=== PATIENT | male | born 1990 | race Caucasian/White ===

== ENCOUNTER 2018-08-30 09:41 | Emergency (ER) | payer OTHER ==
[~2018-08-30] VITALS: Ht 180.3 cm; Wt 70.0 kg
[2018-08-30] MEDS ORDERED: PANTOPRAZOLE SO40 MG PO (12:23)
[2018-08-30] MEDS ORDERED: FUROSEMIDE20 MG PO (12:23)
[2018-08-30] MEDS ORDERED: GENERLAC10 GM/15 M PO (12:23)
[2018-08-30] MEDS ORDERED: PROPRANOLOL HCL10 MG PO (12:23)
[2018-08-30] MEDS ORDERED: ALDACTONE50 MG PO (12:23)
== END 2018-08-30 12:41 | disposition home or self-care (01) ==
LOC: ED 09:41
DX: Z76.0 Encounter for issue of repeat prescription (principal); K74.60 Unspecified cirrhosis of liver; F17.200 Nicotine dependence, unspecified, uncomplicated
CPT/HCPCS: 99281